=== PATIENT | male | born 1985 | race Caucasian/White ===

== ENCOUNTER 2017-12-24 18:37 | Emergency (ER) | payer SELFPAY ==
[~2017-12-24] VITALS: Ht 165.1 cm; Wt 61.7 kg
[2017-12-24 18:40] VITALS: BP 127/75
[2017-12-24] MEDS ORDERED: OMEP20TA56 PO (18:45)
[2017-12-24 19:19] LABS: BASOPHILS # (AUTO) 0.4 K/uL (0.00-0.22); EOSINOPHILS # (AUTO) 0.2 K/uL (0-0.4); HEMOGLOBIN 16.1 g/dL (12.0-18.0); LYMPHOCYTES # (AUTO) 1.9 K/uL (2.0-11.5); MEAN CORPUSCULAR HEMOGLOBIN 30 pg (27-31); MEAN CORPUSCULAR HGB CONC 34 g/dL (33-37); MEAN CORPUSCULAR VOLUME 90 fL (80-94); MONOCYTES # (AUTO) 0.6 K/uL (0.8-1.0); NEUTROPHILS # (AUTO) 3.3 K/uL (1.8-7.7); PLATELET COUNT (AUTO) 360 K/uL (140-450); RED BLOOD CELL COUNT(AUTO) 5.32 MIL/uL (4.20-6.10); RED CELL DISTRIBUTION WIDTH 11.4 % (11.6-13.7); WHITE BLOOD COUNT (AUTO) 6.4 K/uL (4.8-10.8)
[2017-12-24 19:30] LABS: ANION GAP 12.4 (8-16); CARBON DIOXIDE 28.9 mmol/L (21-32); CREATININE 1.1 mg/dL (0.7-1.3); POTASSIUM 4.3 mmol/L (3.5-5.1)
[2017-12-24 19:37] LABS: ALBUMIN 4.4 g/dL (3.4-5.0); TOTAL BILIRUBIN 0.5 mg/dL (0.0-1.0)
--- NOTE | 2017-12-25 01:40 | NUR ---
PATIENT LEFT WITHOUT BEING SEEN BY DR. Ruiz. NO FURTHER CARE PROVIDED FOR PATIENT.
== END 2017-12-25 01:40 | disposition left against medical advice (07) ==
LOC: MED 18:37
DX: R10.13 Epigastric pain (principal); Z53.21 Procedure and treatment not carried out due to patient leaving prior to being seen by health care provider
CPT/HCPCS: 36415; 80053; 83690; 85025; 93005; 99281